=== PATIENT | male | born 1985 | race Caucasian/White ===

== ENCOUNTER 2016-12-09 21:25 | Emergency (ER) | payer OTHER ==
[2016-12-09 21:45] VITALS: BMI 25.0
[2016-12-09] MEDS ORDERED: IBUPROFEN 400 MG TABLET (FP) PO ONE (23:27)
--- NOTE | 2016-12-09 23:27 | PDOC ---
History of Present Illness - General History Source: Patient Exam Limitations: No Limitations - History of Present Illness Initial Comments: 12/09/16 23:34 The patient is a 31 year old male with no significant past medical history who presents to the ED with right flank pain that started today. Patient reports he developed right flank pain today that radiates down the right lower quadrant and testicle. He states the testicle does not hurt, the discomfort is due to the radiation. Patient denies dysuria, hematuria, urgency, and frequency. He denies h/o of kidney stones and states a possible family h/o fo kidney stones. The patient denies fever, chills, cough, SOB, chest pain, and palpitations. The patient denies nausea, vomiting, and diarrhea. Social History: Current smoker and drug recreational use (marijuana) <Rima Lamar - Last Filed: 12/10/16 01:28> - General History Source: Patient <Almas Whiteside - Last Filed: 12/10/16 01:43> - General Chief Complaint: Pain Stated Complaint: PAIN Time Seen by Provider: 12/09/16 23:25 Past History <BriandaRima - Last Filed: 12/10/16 01:28> - Past Medical History Other medical history: denies - Immunization History Immunization Up to Date: Yes - Psycho/Social/Smoking Cessation Hx Suicidal Ideation: No Smoking History: Never smoked Hx Alcohol Use: No Drug/Substance Use Hx: Yes (marijuana) Substance Use Type: Marijuana <Almas Whiteside - Last Filed: 12/10/16 01:43> - Past Medical History Allergies/Adverse Reactions: Allergies Allergy/AdvReac Type Severity Reaction Status Date / Time No Known Allergies Allergy Verified 12/09/16 23:42 Review of Systems - Review of Systems Able to Perform ROS?: Yes Comments:: 12/09/16 23:34 CONSTITUTIONAL: Absent: fever, no chills, no fatigue EYES: Absent: visual changes ENT: Absent: ear pain, no sore throat CARDIOVASCULAR: Absent: chest pain, no palpitations RESPIRATORY: Absent: cough, no SOB GI: Absent: no nausea, no vomiting, no constipation, no diarrhea GENITOURINARY: +right flank pain radiating down right lower quadrant and testicle Absent: dysuria, no frequency, no hematuria MUSKULOSKELETAL: Absent: back pain, no arthralgia, no myalgia SKIN: Absent: rash NEURO: Absent: headache <Rima Lamar - Last Filed: 12/10/16 01:28> *Physical Exam - Vital Signs Last Vital Signs Temp Pulse Resp BP Pulse Ox 97.9 F 85 16 129/78 100 12/09/16 21:42 12/09/16 21:42 12/09/16 21:42 12/09/16 21:42 12/09/16 21:42 - Physical Exam Comments: 12/09/16 23:34 GENERAL: Well-appearing, well-nourished. No apparent distress. HEENT: Normocephalic, atraumatic. PERRL, EOM intact. CARDIOVASCULAR: Normal S1, S2. Regular rate and rhythm. PULMONARY: Clear to auscultation bilaterally. ABDOMEN: Soft, non-distended, right lower quadrant tenderness on palpation. MUSCULOSKELETAL: Positive right CVA tenderness on palpation EXTREMITIES: Normal ROM in all four extremities. No gross deformities. SKIN: Warm, dry. No rash NEUROLOGICAL: No focal neurological deficits. <Rima Lamar - Last Filed: 12/10/16 01:28> - Vital Signs Last Vital Signs Temp Pulse Resp BP Pulse Ox 97.9 F 85 16 129/78 100 12/09/16 21:42 12/09/16 21:42 12/09/16 21:42 12/09/16 21:42 12/09/16 21:42 <Almas Whiteside - Last Filed: 12/10/16 01:43> ED Treatment Course - RADIOLOGY Radiograph Interpretation: 12/10/16 01:28 EXAM: Scrotal ultrasound with grayscale and color Doppler Reviewed by Imaging benefits consulting analyst: IMPRESSION: No evidence of torsion. No hydrocele. No varicocele. Nonspecific benign appearing calcification of the left testicle measuring 2mm. <Rima Lamar - Last Filed: 12/10/16 01:28> Medical Decision Making - Medical Decision Making 12/10/16 01:43 Dr. Whiteside: The scribe's documentation has been prepared under my direction and personally reviewed by me in its entirery. I confirm that the note above accurately reflects all work, treatment, procedures, and medical decision making performed by me. <Almas Whiteside - Last Filed: 12/10/16 01:43> *DC/Admit/Observation/Transfer - Attestations Scribe Attestion: 12/09/16 23:34 Documentation prepared by Rima Lamar, acting as medical administrator for Almas Whiteside MD <Rima Lamar - Last Filed: 12/10/16 01:28> - Discharge Dispostion Admit: No <Almas Whiteside - Last Filed: 12/10/16 01:43> Diagnosis at time of Disposition: Right groin pain - Discharge Dispostion Disposition: HOME Condition at time of disposition: Stable - Referrals Referrals: STAFF,NOT ON [Primary Care Provider] - Zeke Doan MD [Staff Physician] - Zeke Melissa MD [Staff Physician] - - Patient Instructions Printed Discharge Instructions: DI for Groin Strain - Post Discharge Activity Work/School Note: Back to Work
[2016-12-10] MEDS ORDERED: IBUPROFEN 600 MG TABLET (FP) PO ONE (01:21)
[2016-12-10 02:23] VITALS: BP 121/74; PULSE 79; TEMP 97.5
== END 2016-12-10 02:23 | disposition home or self-care (01) ==
LOC: JER 21:25
DX: S39.011A Strain of muscle, fascia and tendon of abdomen, initial encounter (principal); X58.XXXA Exposure to other specified factors, initial encounter; Y93.9 Activity, unspecified; Y92.9 Unspecified place or not applicable
CPT/HCPCS: 74176; 76870-TC; 99282-25

== ENCOUNTER 2017-06-11 08:25 | Emergency (ER) | payer OTHER ==
[2017-06-11 08:35] VITALS: BP 140/80; PULSE 91; TEMP 98.4; BMI 25.0
--- NOTE | 2017-06-11 09:47 | PDOC ---
History of Present Illness - General Chief Complaint: Rash Stated Complaint: COLD, RASH ON BDDY Time Seen by Provider: 06/11/17 09:13 History Source: Patient Exam Limitations: No Limitations - History of Present Illness Initial Comments: 06/11/17 09:12 31-year-old male presents to the ED with complaints of dry hacking cough for the past 3 days associated nasal congestion, difficulty sleeping at night secondary to cough, and also mentioning a generalized pruritic rash first began in his armpits after going to a local beach. Patient states now has spread to his torso and upper legs. Timing/Duration: getting worse Severity: moderate Associated Symptoms: reports: cough, rash Past History - Past Medical History Allergies/Adverse Reactions: Allergies Allergy/AdvReac Type Severity Reaction Status Date / Time No Known Allergies Allergy Verified 06/11/17 08:31 Home Medications: Ambulatory Orders Ibuprofen 800 mg PO TID #30 tablet 12/10/16 Azithromycin [Zithromax Tri-Deon (3 DAYS) -] 500 mg PO DAILY #3 tablet 06/11/17 Diphenhydramine HCl [Benadryl -] 25 mg PO Q8H PRN #21 capsule 06/11/17 Fluticasone Prop 0.05% Nasal [Flonase -] 1 - 2 spray NS DAILY #1 spray.pump Prednisone [Deltasone -] 40 mg PO DAILY #6 tablet 06/11/17 Other medical history: none - Immunization History Immunization Up to Date: Yes - Psycho/Social/Smoking Cessation Hx Anxiety: No Suicidal Ideation: No Smoking History: Never smoked Have you smoked in the past 12 months: No Information on smoking cessation initiated: No Hx Alcohol Use: No Drug/Substance Use Hx: No Substance Use Type: Marijuana Patient Lives Alone: No Lives with/in: spouse/SO Review of Systems - Review of Systems Able to Perform ROS?: Yes Constitutional: No: Symptoms Reported HEENTM: Yes: Nose Congestion, Throat Pain Respiratory: Yes: Cough. No: Shortness of Breath, Wheezing, Productive cough Cardiac (ROS): No: Chest Pain ABD/GI: No: Symptoms Reported Integumentary: Yes: Pruritus, Rash Neurological: No: Symptoms reported *Physical Exam - Vital Signs Last Vital Signs Temp Pulse Resp BP Pulse Ox 98.4 F 91 H 18 140/80 100 06/11/17 08:32 06/11/17 08:32 06/11/17 08:32 06/11/17 08:32 06/11/17 08:32 - Physical Exam General Appearance: Yes: Nourished, Appropriately Dressed. No: Apparent Distress HEENT: positive: EOMI, ANNA, TMs Normal, Pharynx Normal, Nasal Congestion, Rhinorrhea (clear bilateral). negative: Pale Conjunctivae Neck: positive: Normal Thyroid, Supple. negative: Lymphadenopathy (R), Lymphadenopathy (L) Respiratory/Chest: positive: Lungs Clear, Normal Breath Sounds. negative: Respiratory Distress, Accessory Muscle Use Cardiovascular: positive: Regular Rhythm, Regular Rate. negative: Murmur Integumentary: positive: Rash (Scattered papular rash to bilateral axilla is extending to the torso and upper back.) Neurologic: positive: Motor Strength 5/5 ( ambulatory) Medical Decision Making - Medical Decision Making 06/11/17 09:47 Patient here with complaints of pretty crash to bilateral axilla along with a cough and nasal congestion. Patient on exam was itching to bilateral axilla was and torso. Patient with likely contact dermatitis. Patient also with nasal congestion and dry hacking cough. Patient does smoke marijuana daily. Patient will be given a prescription for Flonase and azithromycin for treatment of bronchitis *DC/Admit/Observation/Transfer Diagnosis at time of Disposition: Bronchitis Contact dermatitis Qualifiers: Contact dermatitis type: unspecified Contact dermatitis trigger: unspecified trigger Qualified Code(s): L25.9 - Unspecified contact dermatitis, unspecified cause - Discharge Dispostion Disposition: HOME Condition at time of disposition: Good - Prescriptions Prescriptions: Diphenhydramine HCl [Benadryl -] 25 mg PO Q8H PRN #21 capsule PRN Reason: For Itching Prednisone [Deltasone -] 40 mg PO DAILY #6 tablet Fluticasone Prop 0.05% Nasal [Flonase -] 1 - 2 spray NS DAILY #1 spray.pump Azithromycin [Zithromax Tri-Deon (3 DAYS) -] 500 mg PO DAILY #3 tablet - Patient Instructions Printed Discharge Instructions: DI for Acute Bronchitis, DI for Contact Dermatitis Additional Instructions: Take medication as prescribed. Avoid putting topicals to the affected areas to allow healing. Avoid smoking. Keep nasal passages clear and drink plenty of fluids.
== END 2017-06-11 10:00 | disposition home or self-care (01) ==
LOC: JERFT 08:25
DX: J40 Bronchitis, not specified as acute or chronic (principal); L25.9 Unspecified contact dermatitis, unspecified cause
CPT/HCPCS: 99281-25

== ENCOUNTER 2017-06-13 08:04 | Emergency (ER) | payer OTHER ==
[2017-06-13 08:12] VITALS: BP 144/97; PULSE 92; TEMP 98.5; BMI 25.3
--- NOTE | 2017-06-13 08:36 | PDOC ---
History of Present Illness - General Chief Complaint: Rash Stated Complaint: REVISIT Time Seen by Provider: 06/13/17 08:21 History Source: Patient Exam Limitations: No Limitations - History of Present Illness Initial Comments: 06/13/17 08:43 31 yr male with c/o rash under armpits, waistline, groin for one week . Pt currently taking prednisone for URI and benadryl for the rash. Pt states geetha rash continues. no fever no close contacts with same. Pt admits to sleeping in motel room one month ago. Severity: Yes: moderate Location: reports: generalized Past History - Past Medical History Allergies/Adverse Reactions: Allergies Allergy/AdvReac Type Severity Reaction Status Date / Time No Known Allergies Allergy Verified 06/13/17 08:09 Home Medications: Ambulatory Orders Ibuprofen 800 mg PO TID #30 tablet 12/10/16 Azithromycin [Zithromax Tri-Deon (3 DAYS) -] 500 mg PO DAILY #3 tablet 06/11/17 Diphenhydramine HCl [Benadryl -] 25 mg PO Q8H PRN #21 capsule 06/11/17 Fluticasone Prop 0.05% Nasal [Flonase -] 1 - 2 spray NS DAILY #1 spray.pump Prednisone [Deltasone -] 40 mg PO DAILY #6 tablet 06/11/17 Permethrin 5% Topical Cream [Elimite -] 1 applic TP ONCE #2 tube 06/13/17 Other medical history: denies. - Immunization History Immunization Up to Date: Yes - Psycho/Social/Smoking Cessation Hx Anxiety: No Suicidal Ideation: No Smoking History: Never smoked Have you smoked in the past 12 months: No Hx Alcohol Use: No Drug/Substance Use Hx: Yes (marijuana.) Substance Use Type: Marijuana Review of Systems - Review of Systems Able to Perform ROS?: Yes Is the patient limited Ghanaian proficient: No Constitutional: No: Symptoms Reported HEENTM: No: Symptoms Reported Respiratory: No: Symptoms reported Cardiac (ROS): No: Symptoms Reported ABD/GI: No: Symptoms Reported, Other Musculoskeletal: No: Symptoms Reported Integumentary: Yes: Symptoms Reported, Rash *Physical Exam - Vital Signs Last Vital Signs Temp Pulse Resp BP Pulse Ox 98.5 F 92 H 18 144/97 99 06/13/17 08:09 06/13/17 08:09 06/13/17 08:09 06/13/17 08:09 06/13/17 08:09 - Physical Exam General Appearance: Yes: Nourished, Appropriately Dressed HEENT: positive: EOMI, ANNA, Normal ENT Inspection, TMs Normal, Pharynx Normal, Nasal Congestion Neck: positive: Supple Respiratory/Chest: positive: Lungs Clear, Normal Breath Sounds. negative: Crackles, Rales, Rhonchi, Stridor, Wheezing Cardiovascular: positive: Regular Rhythm, Regular Rate Gastrointestinal/Abdominal: positive: Normal Bowel Sounds, Soft Musculoskeletal: positive: Normal Inspection Extremity: positive: Normal Capillary Refill, Normal Inspection Integumentary: positive: Normal Color, Rash (bilateral axila, waistline, groin with fine red maculopapular rash , no drainage . non vesicular) Neurologic: positive: Fully Oriented, Alert, Normal Mood/Affect, Normal Response , Motor Strength 5/5 Medical Decision Making - Medical Decision Making 06/13/17 08:46 cc: rash, itchy for one week, not improving with predniosne and benadryl no fever no contacts with same pt admits to traveling sleepin in [facility] about one month ago rash is to axila, waistline, back of neck and groin /inner thighs will treat with permetherin to cover for possible scabies refer to derm for follow up I have discussed in detail with pt on possible diagnosis of scabies to use the permetherin and re evaluate follow with derm pt agrees with plan of care and understands the dc instructions for home *DC/Admit/Observation/Transfer Diagnosis at time of Disposition: Rash and nonspecific skin eruption - Discharge Dispostion Disposition: HOME Condition at time of disposition: Good - Prescriptions Prescriptions: Permethrin 5% Topical Cream [Elimite -] 1 applic TP ONCE #2 tube - Referrals Referrals: Lisa Perez MD [Staff Physician] - - Patient Instructions Additional Instructions: use the body shampoo as directed rinse with cool water avoid the sun and hot water follow with the captain/check airman if symptoms do not improve or worsen
== END 2017-06-13 08:36 | disposition home or self-care (01) ==
LOC: JERFT 08:04
DX: R21 Rash and other nonspecific skin eruption (principal)
CPT/HCPCS: 99281-25